=== PATIENT | female | born 1965 | race Caucasian/White ===

== ENCOUNTER 2016-09-21 12:25 | Outpatient (CLI) | payer OTHER | END 2016-09-21 12:26 | disposition home or self-care (01) | DX: D22.5 Melanocytic nevi of trunk (principal); L81.4 Other melanin hyperpigmentation; L82.1 Other seborrheic keratosis; Z71.89 Other specified counseling; L30.9 Dermatitis, unspecified; D48.5 Neoplasm of uncertain behavior of skin; I83.93 Asymptomatic varicose veins of bilateral lower extremities ==

== ENCOUNTER 2020-05-08 15:03 | Outpatient (CLI) | payer BC | END 2020-05-08 15:04 | disposition home or self-care (01) | LOC: COV 15:03 | PROVIDERS: ATTEND Family Medicine | DX: M79.10 Myalgia, unspecified site (principal); R53.83 Other fatigue; R68.83 Chills (without fever); J02.9 Acute pharyngitis, unspecified; R09.81 Nasal congestion; Z20.828 Contact with and (suspected) exposure to other viral communicable diseases ==

== ENCOUNTER 2021-08-20 09:50 | Outpatient (CLI) | payer BC ==
--- NOTE | 2021-08-21 10:41 | Mammography Report ---
BILATERAL DIGITAL SCREENING MAMMOGRAM 3D/2D: 08/20/2021 CLINICAL: Routine screening. Routine screening. Baseline exam. No prior exams were available for comparison. There are scattered fibroglandular elements in both br easts. No significant masses, calcifications, or other findings are seen in either breast. IMPRESSION: NEGATIVE There is no mammographic evidence of malignancy. A 1 year screening mammogram is recommended. This exam was interpreted at Station ID: [id number]. NOTE: For mammograms, a report in lay terms will be sent to the patient. Approximately 15% of breast malignancies will not be visualized mammographically. In the management of a palpable breast mass, a negative mammogram must not discourage biopsy of a clinically suspicious lesion. Electronically Signed By: Roxanne [email or web address]:08/20/2021 16:24:09 ACR BI-RADS Category 1: Negative 3341F PARENCHYMAL PATTERN: (A) - The breast(s) demonstrate(s) scattered fibroglandular densities. BI-RADS CATEGORY: (1) - 1 RECOMMENDATION: (ANNUAL) - Recommend routine annual screening mammography. [id number] 1 year screening LATERALITY: (B)
== END 2021-08-20 09:51 | disposition home or self-care (01) ==
LOC: DI.S 09:50
PROVIDERS: ATTEND Nurse Practitioner Family
DX: Z12.31 Encounter for screening mammogram for malignant neoplasm of breast (principal)

== ENCOUNTER 2023-11-03 08:00 | Outpatient (CLI) | payer BC ==
--- NOTE | 2023-11-03 16:20 | XRAY Report ---
PROCEDURE: Hand 3+V LT INDICATIONS: LEFT FINGER PAIN TECHNIQUE: 3 views of the hand(s) acquired. COMPARISON: None. FINDINGS: Bones: No fractures or dislocations. No suspicious bony lesions. Soft tissues: No suspicious soft tissue calcifications or masses. IMPRESSION: No acute bony abnormality. Reviewed by: Filemon Sheppard MD on 11/03/2023 4:19 PM PDT Approved by: Filemon Sheppard MD on 11/03/2023 4:19 PM PDT Station ID: [id number]
== END 2023-11-03 23:59 | disposition home or self-care (01) ==
LOC: DI.S 08:00
PROVIDERS: ATTEND Registered Nurse
DX: M79.645 Pain in left finger(s) (principal)

== ENCOUNTER 2023-11-17 09:16 | Outpatient (CLI) | payer BC ==
--- NOTE | 2023-11-17 15:07 | XRAY Report ---
PROCEDURE: Finger(s) LT INDICATIONS: LEFT FINGER PAIN TECHNIQUE: AP hand, 2 views of the third finger(s) acquired. COMPARISON: X-ray hand 11/03/2023 FINDINGS: Bones: No fractures or dislocations. No suspicious bony lesions. Soft tissues: No suspicious soft tissue calcifications or masses. IMPRESSION: No visualized acute fracture or dislocation. However, occult injury cannot be excluded. Recommend tonya rt interval imaging follow-up in 7-10 days as clinically indicated for additional evaluation. Reviewed by: Yoko Vera MD on 11/17/2023 3:06 PM PDT Approved by: Yoko Vera MD on 11/17/2023 3:06 PM PDT Station ID: [id number]
== END 2023-11-17 23:59 | disposition home or self-care (01) ==
LOC: DI.S 09:16
PROVIDERS: ATTEND Registered Nurse
DX: M79.645 Pain in left finger(s) (principal)

== ENCOUNTER 2023-12-01 12:32 | Outpatient (CLI) | payer BC ==
--- NOTE | 2023-12-01 14:57 | XRAY Report ---
PROCEDURE: Finger(s) LT INDICATIONS: FINGER PAIN, LEFT TECHNIQUE: AP hand, 2 views of the finger(s) acquired. COMPARISON: 11/17/2023 FINDINGS: Bones: No fractures or dislocations. Mild periarticular spur formation incidentally noted at the DIP and PIP joints of the second and third digit. No suspicious bony lesions. Soft tissues: Mild soft tissue swelling centered around the third PIP joint IMPRESSION: Mild third PIP joint soft tissue swelling without visible radiographic abnormality. Reviewed by: Roxanne Bradley MD on 12/01/2023 2:55 PM PDT Approved by: Roxanne Bradley MD on 12/01/2023 2:55 PM PDT Station ID: [id number]
== END 2023-12-01 12:33 | disposition home or self-care (01) ==
LOC: DI.S 12:32
PROVIDERS: ATTEND Physician Assistant Surgical
DX: M79.645 Pain in left finger(s) (principal)